=== PATIENT | female | born 1975 | race Caucasian/White ===

== ENCOUNTER → 2017-07-20 11:17 | Outpatient (CLI) | payer OTHER, SELFPAY ==
--- NOTE | 2017-07-20 | DI.MG.S_ITS ---
BILATERAL DIGITAL SCREENING MAMMOGRAM 3D/2D WITH CAD: 07/20/2017 CLINICAL: Routine screening. Comparison is made to exams dated: 06/24/2015 mammogram - [facility], 12/25/2008 mammogram, and 06/17/2008 mammogram - [facility]. The tissue of both breasts is extremely dense, which lowers the sensitivity of mammography. Current study was also evaluated with a Computer Aided Detection (CAD) system. No significant masses, calcifications, or other findings are seen in either breast. There has been no significant interval change. IMPRESSION: NEGATIVE There is no mammographic evidence of malignancy. A 1 year screening mammogram is recommended. This exam was interpreted at Station ID: [id number]. NOTE: For mammograms, a report in lay terms will be sent to the patient. Approximately 15% of breast malignancies will not be visualized mammographically. In the management of a palpable breast mass, a negative mammogram must not discourage biopsy of a clinically suspicious lesion. Electronically Signed By: Dereck durham/pedro luis:07/20/2017 14:34:46 copy to: KRZYSZTOF GONZALEZ letter sent: Normal Exam ACR BI-RADS Category 1: Negative [id number]
== END ==
PROVIDERS: Family Provider Family Medicine Geriatric Medicine; PCP Family Medicine Geriatric Medicine; Visit Provider Family Medicine Geriatric Medicine
DX: Z12.31 Encounter for screening mammogram for malignant neoplasm of breast (principal)
CPT/HCPCS: 77063; 77067

== ENCOUNTER → 2017-08-10 14:11 | Outpatient (CLI) | payer OTHER, SELFPAY ==
--- NOTE | 2017-08-10 | DI.MRI.S_ITS ---
PROCEDURE: MR ABDOMEN WO/W CON INDICATIONS: 42 year-old female with liver lesions on previous MRI. TECHNIQUE: Coronal HASTE, axial 2D FLASH in- and [id number]; axial breath-hold T2 FSE. Dynamic axial VIBE during the administration of contrast; post-contrast coronal VIBE or 2D FLASH with fat saturation from the hepatic dome to the iliac crests. Optional diffusion weighted imaging and ADC may be performed. COMPARISON: Outside Facility, RG, MRI ABDOMEN W/W/O CONTRAST, 09/16/2016, 11:17. Outside Facility, RG, CT GUIDED LIVER BIOPSY, 11/01/2015, 15:21. Outside Facility, RG, MRI ABDOMEN W/W/O CONTRAST, 10/30/2015, 13:46. FINDINGS: Image quality: Excellent. Lung bases: No basal pleural effusions. Heart size is normal. There is moderate distention of the mid esophagus, incompletely visualized. Solid organs: Liver is normal in size, without fatty infiltration on in and out of phase images. 2.0 x 1.9 cm subcapsular lesion in segment 7 of the posterior right hepatic lobe is smaller since September 16, 2016 (2.4 x 2.2 cm) and October 30, 2015 (3.0 x 2.9 cm), demonstrating arterial phase hypervascularity, with subsequent delayed iso-enhancement. 2.2 x 1.4 cm hypervascular lesion within anterior segment 2 of the left hepatic lobe has increased in size (1.5 x 1.4 cm on September 16, 2016, and new since October 30, 2015). The nearby additional left hepatic lobe hypervascular lesion is no longer apparent. Largest 4.8 x 4.1 x 3.8 cm lesion in segment 5 of the inferior right hepatic lobe also demonstrates heterogeneous arterial phase hypervascularity, with subsequent contrast washout (5.5 x 5.1 x 5.1 cm on October 30, 2015, and 4.8 x 4.7 x 4.4 cm on September 16, 2016). Gallbladder demonstrates no gallstones or biliary sludge. Biliary system is non dilated. Pancreas is normal in morphology. Spleen is normal in size and enhancement. No adrenal nodules. Both kidneys demonstrate normal size and symmetric enhancement, without hydronephrosis. There is anterior right renal cortical scarring, consistent with hydronephrosis. Nodes and vessels: No retroperitoneal or mesenteric adenopathy by size criteria. Aorta and inferior vena cava are normal in size. Bowel and peritoneum: Unenhanced bowel loops are normal in caliber. No free fluid. Bones and soft tissues: No ventral hernias. Bone marrow is normal in overall signal. IMPRESSION: 1. Previously biopsied dominant right hepatic lobe inferior lesion has continued to decrease in size. Additional posterior right hepatic lobe subcapsular lesion has also continued to decrease in size. Smaller left hepatic lobe lesion on October 2015 MRI is no longer apparent. 2. The previously reported hypervascular new lesion in the anterior left hepatic lobe has continued to enlarge since August 2016, possibly hepatic adenoma or or metastasis. 3. Anterior right renal cortical scarring, consistent with remote pyelonephritis. 4. Incompletely visualized mid esophageal distention may reflect achalasia or high grade distal esophageal stricture. Consider further workup with barium swallow. Dictated by: Howard Calixto M.D. on 08/13/2017 at 9:15 Approved by: Howard Calixto M.D. on 08/13/2017 at 10:14
== END ==
PROVIDERS: Family Provider Family Medicine Geriatric Medicine; PCP Family Medicine Geriatric Medicine; Visit Provider Physician Assistant Medical
DX: K76.9 Liver disease, unspecified (principal)
CPT/HCPCS: 74183; A9579